=== PATIENT | female | born 1970 | race Caucasian/White ===

== ENCOUNTER 2017-03-10 13:52 | Observation (INO) | payer MEDICARE ==
[~2017-03-10] VITALS: Ht 172.7 cm; Wt 98.0 kg
[~2017-03-10 13:52] MED LIST: CARDIZEM30 MG PO; GLUCOSAMINE1000 MG PO; NICODERM 21MG PA1 EA TD; PROTONIX40 MG PO; RISPERDAL3 MG PO; TRAZODONE HCL150 MG PO; ZOLOFT100 MG PO
[2017-03-10 14:18] LABS: BASO % 0.2 % (0.1-1.2); EOS % 0.1 % (0.7-5.8); GRAN # 14.4 10_X3_uL (1.6-6.1); GRAN % 85.7 % (34.0-71.1); HEMOGLOBIN 15.7 g/dL (11.2-15.7); LYMPH # 1.8 10_X3_uL (1.2-3.7); LYMPH % 10.9 % (19.3-51.7); MEAN CORPUSCULAR HEMOGLOBIN 31.2 pg (27.0-33.0); MEAN CORPUSCULAR HGB CONC 34.9 g/dL (32.0-36.0); MEAN CORPUSCULAR VOLUME 89.3 fL (79-95); MEAN PLATELET VOLUME 10.3 fl (7.5-11.5); MONO # 0.5 10_X3_uL (0.2-0.9); MONO % 3.1 % (4.7-12.5); PLATELET COUNT 510 x10_3/uL (182-369); RED BLOOD COUNT 5.04 x10_6/uL (3.9-5.2); RED CELL DISTRIBUTION WIDTH 14.6 % (11.7-14.4); WHITE BLOOD COUNT 16.7 x10_3/uL (4.0-10.0)
[2017-03-10 14:33] LABS: ALBUMIN 4.5 gm/dL (3.4-5.0); ALKALINE PHOSPHATASE 97 U/L (50-136); ALT/SGPT 11 U/L (3.5-33.9); AMYLASE 57 U/L (15.62-74.58); AST/SGOT 13 U/L (7.04-26.96); BILIRUBIN,TOTAL 0.73 mg/dL (0.0-1.0); BLOOD UREA NITROGEN 8 mg/dL (7-18); CALCIUM 9.4 mg/dL (8.7-10.7); CARBON DIOXIDE 19 mmol/L (21-32); CREATININE 0.8 mg/dL (0.6-1.3); GLUCOSE,RANDOM 174 mg/dL (70-99); LIPASE 21 U/L (6.75-60.75); POTASSIUM 3.3 mmol/L (3.5-5.1); SODIUM 138 mmol/L (136-145); TOTAL PROTEIN 8.1 gm/dL (6.4-8.2)
[2017-03-10 15:56] LABS: URINE BILIRUBIN NEGATIVE (NEGATIVE); URINE BLOOD 3+ (NEGATIVE); URINE GLUCOSE (UA) 50 mg/dL (NORMAL); URINE KETONE 3+ (NEGATIVE); URINE LEUKOCYTE ESTERASE 1+ (NEGATIVE); URINE NITRATE NEGATIVE (NEGATIVE); URINE PROTEIN 1+ (NEGATIVE); URINE RBC TNTC /[HPF] (0-2); URINE SQUAMOUS EPITHELIAL CELL 0-10 /[HPF] (NONE SEEN); UROBILINOGEN NORMAL mg/dL (<1.0)
[2017-03-10 15:57] LABS: URINE BACTERIA FEW (NONE SEEN)
[2017-03-11 03:24] LABS: CKMB 3.5 ng/ml (0.0-5.0); TROP-I < 0.30 NG/ML (0.00-0.30)
[2017-03-11 08:05] LABS: HEMOGLOBIN 15.3 g/dL (11.2-15.7); MEAN CORPUSCULAR HEMOGLOBIN 31.4 pg (27.0-33.0); MEAN CORPUSCULAR HGB CONC 34.8 g/dL (32.0-36.0); MEAN CORPUSCULAR VOLUME 90.2 fL (79-95); MEAN PLATELET VOLUME 10.6 fl (7.5-11.5); PLATELET COUNT 425 x10_3/uL (182-369); RED BLOOD COUNT 4.88 x10_6/uL (3.9-5.2); RED CELL DISTRIBUTION WIDTH 14.7 % (11.7-14.4)
[2017-03-11 08:07] LABS: WHITE BLOOD COUNT 21.5 x10_3/uL (4.0-10.0)
[2017-03-11 08:28] LABS: ALKALINE PHOSPHATASE 84 U/L (50-136); ALT/SGPT 10 U/L (3.5-33.9); AST/SGOT 13 U/L (7.04-26.96); BILIRUBIN,TOTAL 0.99 mg/dL (0.0-1.0); BLOOD UREA NITROGEN 8 mg/dL (7-18); CALCIUM 8.7 mg/dL (8.7-10.7); CARBON DIOXIDE 21 mmol/L (21-32); CREATININE 0.7 mg/dL (0.6-1.3); GLUCOSE,RANDOM 117 mg/dL (70-99); POTASSIUM 3.1 mmol/L (3.5-5.1); SODIUM 143 mmol/L (136-145); TOTAL PROTEIN 7.4 gm/dL (6.4-8.2)
[2017-03-11 08:55] LABS: GRAN # 16.4 10_X3_uL (1.6-6.1); GRAN % 76.4 % (34.0-71.1); LYMPH # 2.9 10_X3_uL (1.2-3.7); LYMPH % 13.7 % (19.3-51.7); MONO # 2.1 10_X3_uL (0.2-0.9); MONO % 9.9 % (4.7-12.5)
[2017-03-11 22:39] LABS: CKMB 7.3 ng/ml (0.0-5.0); TROP-I < 0.30 NG/ML (0.00-0.30)
[2017-03-12 04:47] LABS: BASO % 0.1 % (0.1-1.2); EOS # 0.1 10_X3_uL (0.0-0.4); EOS % 0.2 % (0.7-5.8); GRAN # 17.7 10_X3_uL (1.6-6.1); HEMATOCRIT 44.2 % (34-45); HEMOGLOBIN 15.3 g/dL (11.2-15.7); LYMPH # 3.1 10_X3_uL (1.2-3.7); LYMPH % 13.4 % (19.3-51.7); MEAN CORPUSCULAR HGB CONC 34.6 g/dL (32.0-36.0); MEAN CORPUSCULAR VOLUME 89.7 fL (79-95); MEAN PLATELET VOLUME 10.6 fl (7.5-11.5); MONO # 2.2 10_X3_uL (0.2-0.9); MONO % 9.3 % (4.7-12.5); PLATELET COUNT 404 x10_3/uL (182-369); RED BLOOD COUNT 4.93 x10_6/uL (3.9-5.2); RED CELL DISTRIBUTION WIDTH 14.8 % (11.7-14.4)
[2017-03-12 04:57] LABS: BLOOD UREA NITROGEN 8 mg/dL (7-18); CALCIUM 8.7 mg/dL (8.7-10.7); CARBON DIOXIDE 20 mmol/L (21-32); CREATININE 0.6 mg/dL (0.6-1.3); GLUCOSE,RANDOM 133 mg/dL (70-99); SODIUM 140 mmol/L (136-145)
[2017-03-12 04:58] LABS: CKMB 8.3 ng/ml (0.0-5.0); TROP-I 0.31 NG/ML (0.00-0.30)
== END 2017-03-12 07:15 | disposition short-term general hospital (02) ==
LOC: ER 13:52 → MS 17:33
PROVIDERS: General Practice; ADMIT Family Medicine
DX: K52.9 Noninfective gastroenteritis and colitis, unspecified (principal); N39.0 Urinary tract infection, site not specified; K92.0 Hematemesis; I10 Essential (primary) hypertension; Z90.49 Acquired absence of other specified parts of digestive tract; Z83.3 Family history of diabetes mellitus; Z80.9 Family history of malignant neoplasm, unspecified; Z82.49 Family history of ischemic heart disease and other diseases of the circulatory system; R10.9 Unspecified abdominal pain; R00.0 Tachycardia, unspecified; E87.6 Hypokalemia; F17.210 Nicotine dependence, cigarettes, uncomplicated; I21.4 Non-ST elevation (NSTEMI) myocardial infarction
CPT/HCPCS: 36415; 80048; 80053; 80307; 81001; 81025; 82150; 82271; 82550; 82553; 83605; 83690; 83735; 83880; 85025; 87086; 93005; 96361; 96367; 96374; 96375; 96376; 99070; 99284; 99285-25; G0378

== ENCOUNTER 2017-04-02 17:44 | Inpatient (IN) | payer MEDICARE ==
[~2017-04-02] VITALS: Ht 172.7 cm; Wt 95.0 kg
[2017-04-02 18:34] LABS: BASO % 0.2 % (0.1-1.2); EOS % 0.1 % (0.7-5.8); GRAN # 17.1 10_X3_uL (1.6-6.1); GRAN % 87.4 % (34.0-71.1); HEMATOCRIT 45.2 % (34-45); HEMOGLOBIN 15.7 g/dL (11.2-15.7); MEAN CORPUSCULAR HEMOGLOBIN 31.1 pg (27.0-33.0); MEAN CORPUSCULAR HGB CONC 34.7 g/dL (32.0-36.0); MEAN CORPUSCULAR VOLUME 89.5 fL (79-95); MEAN PLATELET VOLUME 10.6 fl (7.5-11.5); MONO # 0.5 10_X3_uL (0.2-0.9); MONO % 2.3 % (4.7-12.5); PLATELET COUNT 521 x10_3/uL (182-369); RED BLOOD COUNT 5.05 x10_6/uL (3.9-5.2); WHITE BLOOD COUNT 19.5 x10_3/uL (4.0-10.0)
[2017-04-02 18:51] LABS: ALBUMIN 4.4 gm/dL (3.4-5.0); ALKALINE PHOSPHATASE 96 U/L (50-136); ALT/SGPT 15 U/L (3.5-33.9); AST/SGOT 18 U/L (7.04-26.96); BLOOD UREA NITROGEN 5 mg/dL (7-18); CALCIUM 9.6 mg/dL (8.7-10.7); CARBON DIOXIDE 19 mmol/L (21-32); CREATININE 0.7 mg/dL (0.6-1.3); GLUCOSE,RANDOM 174 mg/dL (70-99); LIPASE 25 U/L (6.75-60.75); SODIUM 139 mmol/L (136-145); TOTAL PROTEIN 8.2 gm/dL (6.4-8.2)
[2017-04-03 16:22] LABS: HEMATOCRIT 45.4 % (34-45); HEMOGLOBIN 15.8 g/dL (11.2-15.7); MEAN CORPUSCULAR HGB CONC 34.8 g/dL (32.0-36.0); MEAN PLATELET VOLUME 10.9 fl (7.5-11.5); RED BLOOD COUNT 5.1 x10_6/uL (3.9-5.2)
[2017-04-03 16:26] LABS: WHITE BLOOD COUNT 21.9 x10_3/uL (4.0-10.0)
[2017-04-03 16:41] LABS: CKMB 3.4 ng/ml (0.0-5.0)
[2017-04-03 16:42] LABS: BLOOD UREA NITROGEN 5 mg/dL (7-18); CALCIUM 9.3 mg/dL (8.7-10.7); CARBON DIOXIDE 19 mmol/L (21-32); CREATININE 0.7 mg/dL (0.6-1.3); GLUCOSE,RANDOM 138 mg/dL (70-99); MAGNESIUM 1.8 mg/dL (1.8-2.4); POTASSIUM 3.3 mmol/L (3.5-5.1); SODIUM 134 mmol/L (136-145)
[2017-04-03 16:48] LABS: TROP-I < 0.30 NG/ML (0.00-0.30)
[2017-04-03 20:52] LABS: URINE BILIRUBIN NEGATIVE (NEGATIVE); URINE BLOOD 3+ (NEGATIVE); URINE GLUCOSE (UA) NORMAL (NORMAL); URINE KETONE 3+ (NEGATIVE); URINE LEUKOCYTE ESTERASE TRACE (NEGATIVE); URINE NITRATE NEGATIVE (NEGATIVE); URINE PROTEIN 1+ (NEGATIVE)
[2017-04-03 21:55] LABS: URINE RBC TNTC /[HPF] (0-2); URINE WBC 0-5 /[HPF] (0-5)
[2017-04-03 21:56] LABS: URINE SQUAMOUS EPITHELIAL CELL 0-10 /[HPF] (NONE SEEN)
[2017-04-04 00:35] LABS: HEMOGLOBIN 14.9 g/dL (11.2-15.7); MEAN CORPUSCULAR HEMOGLOBIN 30.7 pg (27.0-33.0); MEAN CORPUSCULAR HGB CONC 34.7 g/dL (32.0-36.0); MEAN CORPUSCULAR VOLUME 88.7 fL (79-95); MEAN PLATELET VOLUME 10.4 fl (7.5-11.5); RED BLOOD COUNT 4.85 x10_6/uL (3.9-5.2); WHITE BLOOD COUNT 16.6 x10_3/uL (4.0-10.0)
[2017-04-04 07:13] LABS: HEMATOCRIT 42.6 % (34-45); MEAN CORPUSCULAR HEMOGLOBIN 31.1 pg (27.0-33.0); MEAN CORPUSCULAR HGB CONC 35.2 g/dL (32.0-36.0); MEAN CORPUSCULAR VOLUME 88.4 fL (79-95); MEAN PLATELET VOLUME 10.5 fl (7.5-11.5); RED BLOOD COUNT 4.82 x10_6/uL (3.9-5.2); RED CELL DISTRIBUTION WIDTH 14.9 % (11.7-14.4); WHITE BLOOD COUNT 16.9 x10_3/uL (4.0-10.0)
[2017-04-04 07:28] LABS: ALBUMIN 3.9 gm/dL (3.4-5.0); ALKALINE PHOSPHATASE 84 U/L (50-136); ALT/SGPT 12 U/L (3.5-33.9); AST/SGOT 14 U/L (7.04-26.96); BILIRUBIN,TOTAL 1.25 mg/dL (0.0-1.0); CALCIUM 8.9 mg/dL (8.7-10.7); CARBON DIOXIDE 19 mmol/L (21-32); CREATININE 0.7 mg/dL (0.6-1.3); GLUCOSE,RANDOM 169 mg/dL (70-99); SODIUM 135 mmol/L (136-145); TOTAL PROTEIN 7.2 gm/dL (6.4-8.2)
[2017-04-04 07:46] LABS: BLOOD UREA NITROGEN 7 mg/dL (7-18); POTASSIUM 2.8 mmol/L (3.5-5.1)
[2017-04-04 15:03] LABS: AMYLASE 51 U/L (15.62-74.58); LIPASE 20 U/L (6.75-60.75)
[2017-04-04 15:11] LABS: BILIRUBIN,DIRECT < 0.20 mg/dL (0.0-0.30)
[2017-04-04 20:24] LABS: BASO % 0.1 % (0.1-1.2); EOS % 0.1 % (0.7-5.8); GRAN # 9.3 10_X3_uL (1.6-6.1); GRAN % 69.1 % (34.0-71.1); HEMATOCRIT 40.7 % (34-45); HEMOGLOBIN 14.2 g/dL (11.2-15.7); LYMPH # 2.6 10_X3_uL (1.2-3.7); LYMPH % 19.6 % (19.3-51.7); MEAN CORPUSCULAR HGB CONC 34.9 g/dL (32.0-36.0); MEAN CORPUSCULAR VOLUME 88.9 fL (79-95); MEAN PLATELET VOLUME 10.5 fl (7.5-11.5); MONO # 1.5 10_X3_uL (0.2-0.9); MONO % 11.1 % (4.7-12.5); PLATELET COUNT 346 x10_3/uL (182-369); RED BLOOD COUNT 4.58 x10_6/uL (3.9-5.2); RED CELL DISTRIBUTION WIDTH 14.9 % (11.7-14.4); WHITE BLOOD COUNT 13.5 x10_3/uL (4.0-10.0)
[2017-04-05 07:19] LABS: ALBUMIN 4.1 gm/dL (3.4-5.0); ALKALINE PHOSPHATASE 81 U/L (50-136); ALT/SGPT 12 U/L (3.5-33.9); AST/SGOT 13 U/L (7.04-26.96); BILIRUBIN,TOTAL 1.32 mg/dL (0.0-1.0); BLOOD UREA NITROGEN 9 mg/dL (7-18); CALCIUM 8.9 mg/dL (8.7-10.7); CARBON DIOXIDE 20 mmol/L (21-32); CREATININE 0.8 mg/dL (0.6-1.3); GLUCOSE,RANDOM 146 mg/dL (70-99); POTASSIUM 3.3 mmol/L (3.5-5.1); SODIUM 138 mmol/L (136-145); TOTAL PROTEIN 7.1 gm/dL (6.4-8.2)
[2017-04-05 07:20] LABS: HEMATOCRIT 41.9 % (34-45); HEMOGLOBIN 14.4 g/dL (11.2-15.7); MEAN CORPUSCULAR HEMOGLOBIN 30.9 pg (27.0-33.0); MEAN CORPUSCULAR HGB CONC 34.4 g/dL (32.0-36.0); MEAN CORPUSCULAR VOLUME 89.9 fL (79-95); MEAN PLATELET VOLUME 10.8 fl (7.5-11.5); RED BLOOD COUNT 4.66 x10_6/uL (3.9-5.2)
[2017-04-05 07:51] LABS: FREE T4 1.34 ng/dL (0.93-1.7); THYROID STIMULATING HORMONE 0.665 uIU/mL (0.34-4.82)
[2017-04-05 16:28] LABS: MAGNESIUM 1.9 mg/dL (1.8-2.4); POTASSIUM 3.2 mmol/L (3.5-5.1)
[2017-04-06 06:22] LABS: HEMATOCRIT 41.5 % (34-45); HEMOGLOBIN 13.8 g/dL (11.2-15.7); MEAN CORPUSCULAR HEMOGLOBIN 30.3 pg (27.0-33.0); MEAN CORPUSCULAR HGB CONC 33.3 g/dL (32.0-36.0); MEAN PLATELET VOLUME 10.5 fl (7.5-11.5); RED BLOOD COUNT 4.56 x10_6/uL (3.9-5.2); RED CELL DISTRIBUTION WIDTH 14.9 % (11.7-14.4); WHITE BLOOD COUNT 10.5 x10_3/uL (4.0-10.0)
[2017-04-06 06:35] LABS: BLOOD UREA NITROGEN 7 mg/dL (7-18); CALCIUM 8.2 mg/dL (8.7-10.7); CARBON DIOXIDE 19 mmol/L (21-32); CREATININE 0.7 mg/dL (0.6-1.3); GLUCOSE,RANDOM 165 mg/dL (70-99); POTASSIUM 3.4 mmol/L (3.5-5.1); SODIUM 134 mmol/L (136-145)
[2017-04-07 06:51] LABS: HEMATOCRIT 38.6 % (34-45); MEAN CORPUSCULAR HEMOGLOBIN 30.8 pg (27.0-33.0); MEAN CORPUSCULAR HGB CONC 33.7 g/dL (32.0-36.0); MEAN CORPUSCULAR VOLUME 91.5 fL (79-95); MEAN PLATELET VOLUME 10.5 fl (7.5-11.5); RED BLOOD COUNT 4.22 x10_6/uL (3.9-5.2); RED CELL DISTRIBUTION WIDTH 14.6 % (11.7-14.4); WHITE BLOOD COUNT 10.1 x10_3/uL (4.0-10.0)
[2017-04-07 07:04] LABS: BLOOD UREA NITROGEN 6 mg/dL (7-18); CALCIUM 8.5 mg/dL (8.7-10.7); CARBON DIOXIDE 23 mmol/L (21-32); CREATININE 0.7 mg/dL (0.6-1.3); GLUCOSE,RANDOM 108 mg/dL (70-99); POTASSIUM 3.6 mmol/L (3.5-5.1); SODIUM 137 mmol/L (136-145)
[2017-04-08 06:51] LABS: HEMATOCRIT 38.1 % (34-45); HEMOGLOBIN 12.8 g/dL (11.2-15.7); MEAN CORPUSCULAR HEMOGLOBIN 30.7 pg (27.0-33.0); MEAN CORPUSCULAR HGB CONC 33.6 g/dL (32.0-36.0); MEAN CORPUSCULAR VOLUME 91.4 fL (79-95); MEAN PLATELET VOLUME 10.5 fl (7.5-11.5); RED BLOOD COUNT 4.17 x10_6/uL (3.9-5.2); RED CELL DISTRIBUTION WIDTH 14.6 % (11.7-14.4); WHITE BLOOD COUNT 10.5 x10_3/uL (4.0-10.0)
[2017-04-08 07:12] LABS: BLOOD UREA NITROGEN 5 mg/dL (7-18); CALCIUM 8.4 mg/dL (8.7-10.7); CARBON DIOXIDE 23 mmol/L (21-32); CREATININE 0.8 mg/dL (0.6-1.3); GLUCOSE,RANDOM 110 mg/dL (70-99); POTASSIUM 3.3 mmol/L (3.5-5.1); SODIUM 137 mmol/L (136-145)
== END 2017-04-08 10:45 | disposition home or self-care (01) | DRG 392 ==
LOC: ER 17:44 → MS 04-03 00:15
PROVIDERS: General Practice; ADMIT Family Medicine
DX: K31.84 Gastroparesis (principal); D61.818 Other pancytopenia; K92.2 Gastrointestinal hemorrhage, unspecified; K22.10 Ulcer of esophagus without bleeding; E27.1 Primary adrenocortical insufficiency; R11.2 Nausea with vomiting, unspecified; D72.829 Elevated white blood cell count, unspecified; E87.6 Hypokalemia; I10 Essential (primary) hypertension; E80.6 Other disorders of bilirubin metabolism; K21.9 Gastro-esophageal reflux disease without esophagitis; F32.9 Major depressive disorder, single episode, unspecified; R51 Headache; K29.50 Unspecified chronic gastritis without bleeding; K52.9 Noninfective gastroenteritis and colitis, unspecified; F17.210 Nicotine dependence, cigarettes, uncomplicated; Z83.3 Family history of diabetes mellitus; Z80.9 Family history of malignant neoplasm, unspecified; Z79.899 Other long term (current) drug therapy
CPT/HCPCS: 36415; 70450; 71020; 71260; 78264; 80048; 80053; 81001; 82150; 82248; 82271; 82533; 82550; 82553; 83605; 83690; 83735; 84132; 84439; 84443; 85025; 87040; 87086; 87338; 93005; 93041; 96374; 96375; 99070; 99284; 99285-25; A9541; J3480

== ENCOUNTER 2017-04-02 17:44 | Observation (INO) | payer MEDICARE | END 2017-04-04 10:06 | disposition other institution (70) | LOC: ER 17:44 → MS 23:59 | PROVIDERS: ADMIT Family Medicine | DX: K31.84 Gastroparesis (principal); D61.818 Other pancytopenia; K92.2 Gastrointestinal hemorrhage, unspecified; K22.10 Ulcer of esophagus without bleeding; E27.1 Primary adrenocortical insufficiency; R11.2 Nausea with vomiting, unspecified; D72.829 Elevated white blood cell count, unspecified; E87.6 Hypokalemia; I10 Essential (primary) hypertension; E80.6 Other disorders of bilirubin metabolism; K21.9 Gastro-esophageal reflux disease without esophagitis; F32.9 Major depressive disorder, single episode, unspecified; R51 Headache; K29.00 Acute gastritis without bleeding; K52.9 Noninfective gastroenteritis and colitis, unspecified; F17.210 Nicotine dependence, cigarettes, uncomplicated; Z83.3 Family history of diabetes mellitus; Z80.9 Family history of malignant neoplasm, unspecified; Z79.899 Other long term (current) drug therapy | CPT/HCPCS: 36415; 71020; 80048; 80053; 81001; 82271; 82550; 82553; 83605; 83690; 83735; 85025; 87040; 93005; 93041; 96361; 96365; 96366; 96374; 96375; 96376; 99284; 99285-25; G0378 ==